=== PATIENT | female | born 1930 | race Caucasian/White ===

== ENCOUNTER 2019-05-23 13:09 | Emergency (ER) | payer OTHER ==
[2019-05-23 13:16] VITALS: BP 149/100; PULSE 60; TEMP 98.6; BMI 33.4
--- NOTE | 2019-05-23 13:31 | PDOC ---
Attending Attestation - Resident Resident Name: Tamika Ruiz - ED Attending Attestation I have performed the following: I have examined & evaluated the patient, The case was reviewed & discussed with the resident, I agree w/resident's findings & plan, Exceptions are as noted - HPI HPI: 05/23/19 13:28 89y F hx of afib (on pradaxa), hypohtyroidism presents with difficulty swalling. the pt feels like food is stuck in her thruoght when she had some cereal this morning, states she did drink some coffee that went donw well. pt endorses having a mechanical fall (had slippers on one foot and was loose on anther and turned, stumbled and fell onto anght stand striking her chin on the edge, pt was able to berak the fall with her arms. she denies any preceeding presyncopal symptoms prior to fall and denies any head ache, n/v, loc, vision changes,neck pain, back pain cp, sob, abd pain, extremity pain sp fall. The pt notes that last night, she had some cough/sputum, took a claritin right before going to bed. GENERAL: The patient is awake, alert, and fully oriented, Nontoxic - in no acute distress. HEAD: Normocephalic, no malocclusion, no focal ttp to scalp, mandible/fac + bruising on chin without focal ttp. EYES: extraocular movements intact, sclera anicteric, conjunctiva clear. ENT: Normal voice, Moist mucous membranes. posterior pharnx non erythemadous, no exudates, symmetric posterior pharynx, no fb, NECK: Normal range of motion, supple, no massess, no stridor BACK: No focal ttp to midline of cervical spine, thoracic spine or lumbar spine. LUNGS: Breath sounds equal, clear to auscultation bilaterally. No wheezes, no rhonchi, no rales. HEART: Regular rate and rhythm, normal S1 and S2 without murmur, rub or gallop. ABDOMEN: Soft, nontender, No guarding, no rebound. No CVA tenderness EXTREMITIES: Normal range of motion, no edema. NEUROLOGICAL: No facial assymetry, Normal speech, PSYCH: Normal mood, normal affect. SKIN: Warm, Dry, normal turgor, possible pill esopagitis no pain or signs of facial or neck trauma as a cause of her difficulty swallowing pt able to tolerate crackers and juice here without problems no neck pain to sugest traumatic cause no prior history of swalling, neuro cause less likely will dc with pmd/gi follow up I discussed the physical exam findings, ancillary test results and final diagnoses with the patient. I answered all of the patient's questions. The patient was satisfied with the care received and felt comfortable with the discharge plan and treatment plan. The patient will call their primary care physician within 24 hours to arrange follow-up and will return to the Emergency Department with any new, persistent or worsening symptoms. - Physicial Exam PE: 05/23/19 14:43 see above - Medical Decision Making 05/23/19 14:43 see above
--- NOTE | 2019-05-23 13:48 | PDOC ---
History of Present Illness - General Chief Complaint: Injury Stated Complaint: DIFFICULTY SWALLOWING S/P UNWITNESSED FALL THIS AM Time Seen by Provider: 05/23/19 13:22 History Source: Patient Exam Limitations: No Limitations - History of Present Illness Initial Comments: 05/23/19 13:47 89YOF with h/o A-fib (on blood thinner) and hypothyroidism (takes Synthroid) who p/w difficulty swallowing. She notes having taken a Claritin for excessive phlegm in the middle of the night last night immediately before laying down flat to go to sleep. She also fell onto her knees against her bedside table this morning at about 6 am and hit her chin, bruising the chin. She describes the fall as purely mechanical, states she has peripheral edema in her BLE and she put a slipper on wrong this morning and then tripped on it. She has since had increasing difficulty swallowing which is a new problem/new sensation for her, also feels like something is stuck on the right side of her throat and that everything she eats gets stuck there. She also notes hoarseness but states this is not a new condition and she gets it intermittently. She took Advil subsequent to the incident which she feels did not pass easily, also had cereal and had increased sensation of stuck material in her right throat. She denies LOC or any known injury other than to the knees and chin. Denies [place], neck swelling, n/t/w focally, head injury, laceration, dizziness, lightheadedness, neck pain, or other additional symptoms. She went to Urgent Care first and was referred here to the ED. She took only her Synthroid today but otherwise none of her regular medications and no medication for the pain. Past History - Past Medical History Allergies/Adverse Reactions: Allergies Allergy/AdvReac Type Severity Reaction Status Date / Time No Known Allergies Allergy Verified 05/23/19 13:10 Home Medications: Ambulatory Orders Dabigatran Etexilate Mesylate [Pradaxa -] 150 mg PO BID 05/23/19 Levothyroxine [Synthroid -] 125 mcg PO DAILY 05/23/19 Losartan 50Mg/Hctz 12.5MG [Hyzaar -] 1 tab PO DAILY 05/23/19 Metoprolol Succinate [Toprol Xl -] 50 mg PO BID 05/23/19 Cardiac Disorders: Yes (AFIB) COPD: No HTN: Yes Thyroid Disease: Yes - Suicide/Smoking/Psychosocial Hx Smoking History: Never smoked Hx Alcohol Use: No Drug/Substance Use Hx: No Review of Systems - Review of Systems Able to Perform ROS?: Yes Comments:: 05/23/19 14:21 GEN: no fever, chills, malaise, generalized weakness, or weight change HEENT: difficulty swallowing, stuck material sensation, hoarseness, no ear pain , vision change, or eye pain CV: no chest pain, palpitations, lightheadedness, syncope, or edema RESP: no cough, wheezing, or SOB GI: no abdominal pain, nausea, vomiting, diarrhea, constipation, or white/black/ bloody stool : no dysuria, hematuria, incontinence, retention, bleeding, or discharge MSK: no neck/back pain, muscle weakness/pain, or joint swelling/pain NEURO: no headache, seizure, vertigo, numbness, tingling, or focal weakness PSYCH: no substance use, no behavior change SKIN: no jaundice, no rash ROS otherwise negative except as noted in HPI *Physical Exam - Vital Signs Last Vital Signs Temp Pulse Resp BP Pulse Ox 98.6 F 60 18 149/100 99 05/23/19 13:10 05/23/19 13:10 05/23/19 13:10 05/23/19 13:10 05/23/19 13:10 - Physical Exam Comments: 05/23/19 14:27 GENERAL: well-appearing, A/Ox4, no distress, answers questions appropriately, very pleasant elderly female in no distress HEENT: mildly hoarse voice, mild bruising right inferior mental region, mild abrasion right superior lip without laceration or significant bruising, posterior oropharynx without tonsillar swelling or exudates or uvular deviation or erythema or any other abnormalities, PERRLA, EOMI, moist mucous membranes NECK/BACK: no midline ttp, no spinal stepoff or deformity, no hematoma, full ROM , neck supple CARDIOVASCULAR: regular rate/rhythm, normal S1S2, no MGR, strong peripheral pulses, capillary refill <2 seconds, extremities wwp, no edema LUNGS/RESPIRATORY: no respiratory distress, CTAB GI/ABDOMEN: symmetric [id number], normoactive BS, soft, no ttp, no midline pulsatile masses : no CVA tenderness EXTREMITIES: no muscle atrophy, no acute deformity SKIN: warm and dry, no pallor, no jaundice, no rash, no bruising, no skin breakdown, no cuts, no lesions NEUROLOGICAL: GCS 15, CN II-XII grossly intact, 5/5 strength proximally and distally, no facial droop *DC/Admit/Observation/Transfer Diagnosis at time of Disposition: Throat discomfort - Discharge Dispostion Disposition: HOME Condition at time of disposition: Stable Decision to Admit order: No - Referrals Referrals: ON STAFF,NOT [Non Staff, Medical] - - Patient Instructions Additional Instructions: You were seen in the ER for throat discomfort. We did an exam and took a thorough history. After our assessment, we do not believe you are having a medical emergency at this time, and we believe you are safe to go home. We believe that your symptoms are due to pill esophagitis, but there is no way to be sure about this from the emergency room. Please follow up with your primary care provider in 1-3 days. Call their clinic, tell them you were seen in the ER , and tell them you need a follow-up. In the meantime, when you take any pills, make sure you sit upright for at least 30 minutes after taking them, and drink plenty of fluids when you take these pills. If you have any new or worsening symptoms, especially difficulty breathing, vomiting, inability to keep down liquids, fever, or other problems, please come back to the ER at any time (24 hours a day). If you are having severe or life threatening symptoms, or symptoms that make it unsafe to drive or have someone drive you, please call 911. - Post Discharge Activity
== END 2019-05-23 14:39 | disposition home or self-care (01) ==
LOC: FER 13:09
DX: R07.0 Pain in throat (principal); I48.91 Unspecified atrial fibrillation; I10 Essential (primary) hypertension; E03.9 Hypothyroidism, unspecified; Z79.01 Long term (current) use of anticoagulants
CPT/HCPCS: 99282-25